=== PATIENT | male | born 1950 | race African-American/Black ===

== ENCOUNTER 2016-09-26 19:41 | Emergency (ER) | payer OTHER ==
[~2016-09-26] VITALS: Ht 182.9 cm; Wt 107.0 kg
[~2016-09-26 19:41] MED LIST: ALPR0.25 PO; ASPI81 PO; ASPI81TA2 PO; BISA10SU61 PR; BUME1TAB30 PO; CARV12 PO; CARV3 PO; DOCU250C76 PO; FERR-89 PO; HYDR-3965 PO; INSLAN SQ; INSU100C3 SQ; STAL100 PO; UNK INSULIN SQ; ZARO5 PO
[2016-09-26 19:51] VITALS: BP 137/89
[2016-09-26 20:15] LABS: GLUCOSE COMMENT 1 Doctor Notified; GLUCOSE,POINT OF CARE 377 MG/DL (70-110)
[2016-09-26 20:30] LABS: EOSINOPHILS % (AUTO) 1.2 % (1.0-6.0); HEMATOCRIT 32.3 % (41-53); HEMOGLOBIN 10.4 g/dL (13.5-17.5); LYMPHOCYTES # (AUTO) 0.8 K/uL (1.0-4.8); LYMPHOCYTES % (AUTO) 10.8 % (22.0-44.0); MEAN CORPUSCULAR HEMOGLOBIN 29.2 pg (26.0-34.0); MEAN CORPUSCULAR HGB CONC 32.2 G/dL (31.0-37.0); MEAN CORPUSCULAR VOLUME 91 fL (80-100); MONOCYTES # (AUTO) 0.4 K/uL (0.1-1.0); MONOCYTES % (AUTO) 5.3 % (2.0-9.0); NEUTROPHILS % (AUTO) 81.7 % (40.0-70.0); PLATELET COUNT (AUTO) 262 K/uL (150-450); RED BLOOD CELL COUNT(AUTO) 3.56 MIL/uL (4.50-5.90); RED CELL DISTRIBUTION WIDTH 15.6 % (11.5-14.5); WHITE BLOOD COUNT (AUTO) 7.3 K/uL (4.5-11.0)
[2016-09-26 20:33] LABS: ANION GAP 1 mmol/L (8-16); CALCIUM, TOTAL 8.3 mg/dL (8.8-10.5); CARBON DIOXIDE 35 mmol/L (22-29); CHLORIDE 93 mmol/L (98-107); CREATININE 1.99 mg/dL (0.60-1.30); GLOMERULAR FILTR. RATE CALC 41 mL/min (>60); POTASSIUM 3.8 mmol/L (3.5-5.1); SODIUM SERUM 129 mmol/L (136-145); UREA NITROGEN, BLOOD 42 mg/dL (7-18)
[2016-09-26 20:39] LABS: INR 1.1 (0.9-1.1); PROTHROMBIN TIME 12.1 SEC (9.4-11.6)
[2016-09-26 20:41] LABS: ALANINE AMINOTRANSFERASE 23 U/L (12-78); ALBUMIN 2.4 g/dL (3.4-5.0); ASPARTATE AMINOTRANSFERASE 19 U/L (15-37); BILIRUBIN,TOTAL 0.3 mg/dL (0.1-1.0); CREATINE KINASE, TOTAL 28 U/L (39-308); TOTAL PROTEIN, SERUM 7.6 g/dL (6.4-8.2)
[2016-09-26 21:08] LABS: B-TYPE NATRIURETIC PEPTIDE 2160 pg/mL (0-100)
== END 2016-09-26 22:28 | disposition left against medical advice (07) ==
LOC: EMS 19:46
DX: R06.02 Shortness of breath (principal); M79.89 Other specified soft tissue disorders; I11.0 Hypertensive heart disease with heart failure; I50.9 Heart failure, unspecified; E11.9 Type 2 diabetes mellitus without complications; I48.91 Unspecified atrial fibrillation; Z53.21 Procedure and treatment not carried out due to patient leaving prior to being seen by health care provider
CPT/HCPCS: 82962; 93005

== ENCOUNTER 2016-11-18 17:58 | Inpatient (IN) | payer OTHER ==
[~2016-11-18] VITALS: Ht 172.7 cm; Wt 107.8 kg
[~2016-11-18 17:58] MED LIST changes: -ASPI81 PO; -CARV12 PO; -FERR-89 PO; +FERS325 PO; -HYDR-3965 PO; -UNK INSULIN SQ
[2016-11-18 18:52] LABS: GLUCOSE,POINT OF CARE 267 MG/DL (70-110)
[2016-11-18] MEDS ORDERED: HYDR-309 PO (19:02)
[2016-11-18 19:28] LABS: BASOPHILS % (AUTO) 0.3 % (0.0-2.0); EOSINOPHILS % (AUTO) 2.9 % (1.0-6.0); HEMATOCRIT 33.8 % (41-53); HEMOGLOBIN 10.9 g/dL (13.5-17.5); LYMPHOCYTES # (AUTO) 0.6 K/uL (1.0-4.8); MEAN CORPUSCULAR HEMOGLOBIN 28.9 pg (26.0-34.0); MEAN CORPUSCULAR HGB CONC 32.2 G/dL (31.0-37.0); MEAN CORPUSCULAR VOLUME 90 fL (80-100); MONOCYTES # (AUTO) 0.5 K/uL (0.1-1.0); MONOCYTES % (AUTO) 8.8 % (2.0-9.0); NEUTROPHILS # (AUTO) 4.1 K/uL (1.8-7.7); PLATELET COUNT (AUTO) 148 K/uL (150-450); RED BLOOD CELL COUNT(AUTO) 3.77 MIL/uL (4.50-5.90); RED CELL DISTRIBUTION WIDTH 18.3 % (11.5-14.5); WHITE BLOOD COUNT (AUTO) 5.3 K/uL (4.5-11.0)
[2016-11-18 19:34] LABS: INR 1.2 (0.9-1.1); PROTHROMBIN TIME 12.7 SEC (9.4-11.6)
[2016-11-18 19:56] LABS: CALCIUM, TOTAL 8.6 mg/dL (8.8-10.5); CREATININE 2.09 mg/dL (0.60-1.30); POTASSIUM 3.9 mmol/L (3.5-5.1)
[2016-11-18 19:57] LABS: RBC MORPHOLOGY COMMENT ABNORMAL RBC MORPH
[2016-11-18 20:02] LABS: ALBUMIN 2.4 g/dL (3.4-5.0); BILIRUBIN,TOTAL 0.5 mg/dL (0.1-1.0); TOTAL PROTEIN, SERUM 7.4 g/dL (6.4-8.2)
[2016-11-18] MEDS ORDERED: FUROSEMIDE 40 MG/4 ML VIAL IVP ONE (20:30)
[2016-11-18] MEDS ORDERED: FURO20TA4 PO (20:44)
[2016-11-18] MEDS ORDERED: BUME1TAB12 PO (20:44)
[2016-11-18] MEDS ORDERED: HYDROmorphone 2 MG/ML SYRINGE IVP ONE (21:15)
[2016-11-18] MEDS ORDERED: ONDANSETRON HCL 4 MG/2 ML VIAL IVP ONE (21:15)
[2016-11-18 21:54] LABS: APPEARANCE,URINE CLOUDY (CLEAR); GLUCOSE, URINE (UA) 100 mg/dL (NEGATIVE); KETONES,URINE NEGATIVE (NEGATIVE); LEUKOCYTE ESTERASE ,URINE NEGATIVE (NEGATIVE); OCCULT BLOOD,URINE MODERATE (NEGATIVE); PROTEIN,URINE SEE CONFIRM (NEGATIVE)
[2016-11-18 21:57] LABS: ADD UA MICROSCOPIC YES
[2016-11-18] MEDS ORDERED: BUMETANIDE 0.25 MG/ML 10 ML VIAL IVP ONE (22:00)
[2016-11-18] MEDS ORDERED: ONDANSETRON HCL 4 MG/2 ML VIAL IVP PRN (22:00)
[2016-11-18] MEDS ORDERED: 0.9% SODIUM CHLORIDE 10 ML SYRINGE IVP PRN (22:00)
[2016-11-18] MEDS ORDERED: ACETAMINOPHEN 325 MG TABLET PO PRN (22:00)
[2016-11-18 22:16] LABS: SULFOSALICYLIC ACID,URINE 3+ (Negative)
[2016-11-18 22:18] LABS: WBC,URINE None Seen /HPF (0-5)
[2016-11-18 22:19] LABS: RENAL EPITHELIAL CELLS,URINE Many /LPF (None Seen)
[2016-11-18 22:56] LABS: GLUCOSE,POINT OF CARE 298 MG/DL (70-110)
[2016-11-18 23:20] VITALS: BP 145/96
[2016-11-19] MEDS ORDERED: DEXTROSE 50%-WATER 25 GM/50 ML SYRINGE IVP PRN ×2 (00:30→02:15)
[2016-11-19] MEDS: INSULIN ASPART 100 UNITS/ML SQ PRN ×4 (00:42→21:13)
[2016-11-19] MEDS ORDERED: BUME2TAB18 PO (01:13)
[2016-11-19] MEDS ORDERED: FURO80TA3 PO (01:13)
[2016-11-19] MEDS ORDERED: FINA1TAB17 PO (01:14)
[2016-11-19] MEDS ORDERED: ONDANSETRON HCL 4 MG/2 ML VIAL IVP PRN (02:15)
[2016-11-19] MEDS ORDERED: MAGNESIUM HYDROXIDE SUSPENSION 30 ML UDCUP PO PRN (02:15)
[2016-11-19] MEDS ORDERED: ACETAMINOPHEN 325 MG TABLET PO PRN (02:15)
[2016-11-19] MEDS ORDERED: 0.9% SODIUM CHLORIDE 10 ML SYRINGE IVP PRN (02:15)
[2016-11-19] MEDS ORDERED: BISACODYL 10 MG RECTAL RECTAL SUPPOSITORY PR PRN (02:15)
[2016-11-19] MEDS: BUMETANIDE 10 MG in DEXTROSE 5%-WATER 60 ML IV SCH ×2 (03:46→21:20)
[2016-11-19] MEDS ORDERED: SODIUM CHLORIDE 0.9% 500 ML IV ONE (03:48)
[2016-11-19 03:55] VITALS: BP 158/96
[2016-11-19] MEDS: HYDROCODONE/ACETAMINOPHEN 5-325 MG TABLET PO PRN ×2 (03:55→19:47)
[2016-11-19] MEDS: CARVEDILOL 3.125 MG TABLET PO SCH ×3 (03:55→21:12)
[2016-11-19 08:07] LABS: GLUCOSE,POINT OF CARE 328 MG/DL (70-110)
[2016-11-19 08:07] LABS: GLUCOSE,POINT OF CARE 184 MG/DL (70-110)
[2016-11-19 08:15] VITALS: BP 122/76
[2016-11-19 08:41] LABS: BASOPHILS % (AUTO) 0.6 % (0.0-2.0); EOSINOPHILS % (AUTO) 5.3 % (1.0-6.0); HEMATOCRIT 31.5 % (41-53); HEMOGLOBIN 10.1 g/dL (13.5-17.5); LYMPHOCYTES # (AUTO) 0.8 K/uL (1.0-4.8); LYMPHOCYTES % (AUTO) 13.8 % (22.0-44.0); MEAN CORPUSCULAR HEMOGLOBIN 28.8 pg (26.0-34.0); MEAN CORPUSCULAR VOLUME 90 fL (80-100); MONOCYTES # (AUTO) 0.8 K/uL (0.1-1.0); NEUTROPHILS # (AUTO) 3.6 K/uL (1.8-7.7); NEUTROPHILS % (AUTO) 65.3 % (40.0-70.0); RED CELL DISTRIBUTION WIDTH 18.8 % (11.5-14.5); WHITE BLOOD COUNT (AUTO) 5.5 K/uL (4.5-11.0)
[2016-11-19] MEDS: PANTOPRAZOLE SODIUM 40 MG DR TABLET PO SCH (08:59)
[2016-11-19 09:29] LABS: ALBUMIN 2.3 g/dL (3.4-5.0); BILIRUBIN,TOTAL 0.6 mg/dL (0.1-1.0); CALCIUM, TOTAL 8.3 mg/dL (8.8-10.5); CREATININE 2.01 mg/dL (0.60-1.30); POTASSIUM 3.9 mmol/L (3.5-5.1); TOTAL PROTEIN, SERUM 6.8 g/dL (6.4-8.2)
[2016-11-19 09:56] LABS: PLATELET COUNT (AUTO) 134 K/uL (150-450)
[2016-11-19 09:57] LABS: RBC MORPHOLOGY COMMENT ABNORMAL RBC MORPH
[2016-11-19 15:18] LABS: CALCIUM, TOTAL 8.4 mg/dL (8.8-10.5); CREATININE 1.92 mg/dL (0.60-1.30); POTASSIUM 4.1 mmol/L (3.5-5.1)
[2016-11-19 16:29] VITALS: BP 129/85
[2016-11-19] MEDS ORDERED: MAGNESIUM OXIDE 400 MG TABLET PO ONE (17:15)
[2016-11-19 17:20] LABS: MAGNESIUM 1.7 mg/dL (1.80-2.40); PHOSPHORUS 4.1 mg/dL (2.5-4.9)
[2016-11-19] MEDS ORDERED: RIVAROXABAN 10 MG TABLET PO SCH (18:00)
[2016-11-19 19:45] VITALS: BP 149/83
[2016-11-19 20:47] LABS: CALCIUM, TOTAL 8.5 mg/dL (8.8-10.5); CREATININE 2.18 mg/dL (0.60-1.30); POTASSIUM 4.2 mmol/L (3.5-5.1)
[2016-11-20] VITALS (7 sets, daily range): BP systolic 112–154; BP diastolic 71–95
[2016-11-20 05:32] LABS: GLUCOSE,POINT OF CARE 272 MG/DL (70-110)
[2016-11-20 05:37] LABS: GLUCOSE COMMENT 1 Received Meds; GLUCOSE,POINT OF CARE 108 MG/DL (70-110)
[2016-11-20 06:23] LABS: BASOPHILS % (AUTO) 0.2 % (0.0-2.0); EOSINOPHILS % (AUTO) 5.6 % (1.0-6.0); HEMATOCRIT 32.5 % (41-53); HEMOGLOBIN 10.3 g/dL (13.5-17.5); LYMPHOCYTES # (AUTO) 0.7 K/uL (1.0-4.8); LYMPHOCYTES % (AUTO) 12.8 % (22.0-44.0); MEAN CORPUSCULAR HGB CONC 31.8 G/dL (31.0-37.0); MEAN CORPUSCULAR VOLUME 91 fL (80-100); MONOCYTES # (AUTO) 0.6 K/uL (0.1-1.0); MONOCYTES % (AUTO) 11.7 % (2.0-9.0); NEUTROPHILS # (AUTO) 3.6 K/uL (1.8-7.7); NEUTROPHILS % (AUTO) 69.7 % (40.0-70.0); PLATELET COUNT (AUTO) 130 K/uL (150-450); RED BLOOD CELL COUNT(AUTO) 3.56 MIL/uL (4.50-5.90); RED CELL DISTRIBUTION WIDTH 18.4 % (11.5-14.5); WHITE BLOOD COUNT (AUTO) 5.2 K/uL (4.5-11.0)
[2016-11-20 06:46] LABS: ALBUMIN 2.2 g/dL (3.4-5.0); BILIRUBIN,TOTAL 0.5 mg/dL (0.1-1.0); CALCIUM, TOTAL 8.3 mg/dL (8.8-10.5); CREATININE 2.14 mg/dL (0.60-1.30); MAGNESIUM 1.8 mg/dL (1.80-2.40); POTASSIUM 3.9 mmol/L (3.5-5.1); TOTAL PROTEIN, SERUM 6.7 g/dL (6.4-8.2)
[2016-11-20 07:37] LABS: APPEARANCE,URINE TURBID (CLEAR); GLUCOSE, URINE (UA) NEGATIVE (NEGATIVE); KETONES,URINE NEGATIVE (NEGATIVE); LEUKOCYTE ESTERASE ,URINE TRACE (NEGATIVE); OCCULT BLOOD,URINE LARGE (NEGATIVE)
[2016-11-20 07:54] LABS: FINE GRANULAR CASTS,URINE 0-2 /LPF (None Seen); HYALINE CASTS, URINE 0-2 /LPF (None Seen); RBC,URINE >100 /HPF (0-2); SQUAMOUS EPITHELIAL CELL,UR Few /LPF (None Seen)
[2016-11-20 07:56] LABS: PROTEIN,URINE SEE CONFIRM (NEGATIVE)
[2016-11-20] MEDS: CARVEDILOL 6.25 MG TABLET PO SCH ×2 (09:27→20:01)
[2016-11-20] MEDS: PANTOPRAZOLE SODIUM 40 MG DR TABLET PO SCH (09:27)
[2016-11-20] MEDS: HYDROCODONE/ACETAMINOPHEN 5-325 MG TABLET PO PRN ×2 (09:30→19:58)
[2016-11-20 12:18] LABS: CALCIUM, TOTAL 8.3 mg/dL (8.8-10.5); CREATININE 2.18 mg/dL (0.60-1.30); POTASSIUM 4.3 mmol/L (3.5-5.1)
[2016-11-20] MEDS: ASPIRIN 81 MG CHEWABLE TABLET PO SCH (14:57)
[2016-11-20] MEDS: ATORVASTATIN CALCIUM 40 MG TABLET PO SCH (14:57)
[2016-11-20] MEDS: INSULIN ASPART 100 UNITS/ML SQ PRN ×2 (17:53→20:00)
[2016-11-20] MEDS: BUMETANIDE 10 MG in DEXTROSE 5%-WATER 60 ML IV SCH (17:54)
[2016-11-20 19:57] LABS: GLUCOSE COMMENT 1 Received Meds; GLUCOSE,POINT OF CARE 191 MG/DL (70-110)
[2016-11-20 19:57] LABS: GLUCOSE,POINT OF CARE 207 MG/DL (70-110)
[2016-11-21] VITALS (8 sets, daily range): BP systolic 116–139; BP diastolic 49–89
[2016-11-21 01:36] LABS: GLUCOSE,POINT OF CARE 115 MG/DL (70-110)
[2016-11-21 02:07] LABS: GLUCOSE COMMENT 1 Received Meds; GLUCOSE,POINT OF CARE 208 MG/DL (70-110)
[2016-11-21 02:07] LABS: GLUCOSE COMMENT 1 Received Meds; GLUCOSE,POINT OF CARE 222 MG/DL (70-110)
[2016-11-21] MEDS: MORPHINE SULFATE 4 MG/ML SYRINGE IVP PRN ×2 (02:19→19:58)
[2016-11-21] MEDS: INSULIN ASPART 100 UNITS/ML SQ PRN ×4 (06:07→21:26)
[2016-11-21 07:02] LABS: BASOPHILS # (AUTO) 0.01 K/uL (0.00-0.20); BASOPHILS % (AUTO) 0.2 % (0.0-2.0); EOSINOPHILS # (AUTO) 0.22 K/uL (0.00-0.70); EOSINOPHILS % (AUTO) 3.08 % (1.0-6.0); HEMATOCRIT 34.5 % (41-53); HEMOGLOBIN 11.3 g/dL (13.5-17.5); LYMPHOCYTES # (AUTO) 0.6 K/uL (1.0-4.8); LYMPHOCYTES % (AUTO) 8.7 % (22.0-44.0); MEAN CORPUSCULAR HEMOGLOBIN 29.4 pg (26.0-34.0); MEAN CORPUSCULAR HGB CONC 32.8 G/dL (31.0-37.0); MEAN CORPUSCULAR VOLUME 90 fL (80-100); MONOCYTES # (AUTO) 0.7 K/uL (0.1-1.0); MONOCYTES % (AUTO) 9.4 % (2.0-9.0); NEUTROPHILS # (AUTO) 5.8 K/uL (1.8-7.7); NEUTROPHILS % (AUTO) 78.6 % (40.0-70.0); PLATELET COUNT (AUTO) 151 K/uL (150-450); RED BLOOD CELL COUNT(AUTO) 3.86 MIL/uL (4.50-5.90); RED CELL DISTRIBUTION WIDTH 18.7 % (11.5-14.5); WHITE BLOOD COUNT (AUTO) 7.3 K/uL (4.5-11.0)
[2016-11-21 07:17] LABS: GLUCOSE COMMENT 1 Received Meds; GLUCOSE,POINT OF CARE 306 MG/DL (70-110)
[2016-11-21 07:17] LABS: RBC MORPHOLOGY COMMENT ABNORMAL RBC MORPH
[2016-11-21 07:47] LABS: ALBUMIN 2.3 g/dL (3.4-5.0); BILIRUBIN,TOTAL 0.5 mg/dL (0.1-1.0); CALCIUM, TOTAL 8.4 mg/dL (8.8-10.5); CREATININE 2.32 mg/dL (0.60-1.30); MAGNESIUM 1.9 mg/dL (1.80-2.40); PHOSPHORUS 4.1 mg/dL (2.5-4.9); POTASSIUM 4.1 mmol/L (3.5-5.1)
[2016-11-21] MEDS: CARVEDILOL 6.25 MG TABLET PO SCH ×2 (08:55→21:31)
[2016-11-21] MEDS: ASPIRIN 81 MG CHEWABLE TABLET PO SCH (08:55)
[2016-11-21] MEDS: PANTOPRAZOLE SODIUM 40 MG DR TABLET PO SCH (08:56)
[2016-11-21] MEDS: ATORVASTATIN CALCIUM 40 MG TABLET PO SCH ×2 (08:56→09:00)
[2016-11-21] MEDS: HYDROCODONE/ACETAMINOPHEN 5-325 MG TABLET PO PRN ×2 (12:01→21:31)
[2016-11-21 12:56] LABS: GLUCOSE COMMENT 1 Received Meds; GLUCOSE,POINT OF CARE 242 MG/DL (70-110)
[2016-11-21] MEDS: BUMETANIDE 10 MG in DEXTROSE 5%-WATER 60 ML IV SCH (13:58)
[2016-11-21] MEDS ORDERED: FINA5TAB41 PO (15:17)
[2016-11-21] MEDS: BUMETANIDE 0.25 MG/ML 10 ML VIAL IVP SCH ×2 (16:33→23:56)
[2016-11-21 20:17] LABS: GLUCOSE COMMENT 1 Received Meds; GLUCOSE,POINT OF CARE 226 MG/DL (70-110)
[2016-11-21 20:21] LABS: GLUCOSE COMMENT 1 Received Meds; GLUCOSE,POINT OF CARE 140 MG/DL (70-110)
[2016-11-22 01:02] LABS: GLUCOSE COMMENT 1 Received Meds; GLUCOSE,POINT OF CARE 168 MG/DL (70-110)
[2016-11-22] MEDS: MORPHINE SULFATE 4 MG/ML SYRINGE IVP PRN ×2 (06:02→21:54)
[2016-11-22] MEDS: INSULIN ASPART 100 UNITS/ML SQ PRN ×4 (06:37→21:45)
[2016-11-22 07:12] LABS: BASOPHILS % (AUTO) 0.2 % (0.0-2.0); EOSINOPHILS % (AUTO) 5.3 % (1.0-6.0); HEMATOCRIT 35.8 % (41-53); HEMOGLOBIN 11.2 g/dL (13.5-17.5); LYMPHOCYTES # (AUTO) 0.6 K/uL (1.0-4.8); LYMPHOCYTES % (AUTO) 11.1 % (22.0-44.0); MEAN CORPUSCULAR HEMOGLOBIN 28.7 pg (26.0-34.0); MEAN CORPUSCULAR HGB CONC 31.5 G/dL (31.0-37.0); MEAN CORPUSCULAR VOLUME 91 fL (80-100); MONOCYTES # (AUTO) 0.6 K/uL (0.1-1.0); MONOCYTES % (AUTO) 10.5 % (2.0-9.0); NEUTROPHILS # (AUTO) 3.9 K/uL (1.8-7.7); NEUTROPHILS % (AUTO) 72.9 % (40.0-70.0); PLATELET COUNT (AUTO) 143 K/uL (150-450); RED BLOOD CELL COUNT(AUTO) 3.92 MIL/uL (4.50-5.90); RED CELL DISTRIBUTION WIDTH 18.8 % (11.5-14.5); WHITE BLOOD COUNT (AUTO) 5.4 K/uL (4.5-11.0)
[2016-11-22 07:43] LABS: ALBUMIN 2.2 g/dL (3.4-5.0); BILIRUBIN,TOTAL 0.5 mg/dL (0.1-1.0); CALCIUM, TOTAL 8.2 mg/dL (8.8-10.5); CREATININE 2.3 mg/dL (0.60-1.30); POTASSIUM 4.1 mmol/L (3.5-5.1); TOTAL PROTEIN, SERUM 6.9 g/dL (6.4-8.2)
[2016-11-22 08:40] VITALS: BP 112/77
[2016-11-22] MEDS: BUMETANIDE 0.25 MG/ML 10 ML VIAL IVP SCH ×2 (08:44→16:18)
[2016-11-22] MEDS: PANTOPRAZOLE SODIUM 40 MG DR TABLET PO SCH (08:44)
[2016-11-22] MEDS: ATORVASTATIN CALCIUM 40 MG TABLET PO SCH (08:44)
[2016-11-22] MEDS: ASPIRIN 81 MG CHEWABLE TABLET PO SCH (08:44)
[2016-11-22] MEDS: CARVEDILOL 6.25 MG TABLET PO SCH ×2 (08:44→21:43)
[2016-11-22 09:37] VITALS: BP 116/70
[2016-11-22] MEDS: HYDROCODONE/ACETAMINOPHEN 5-325 MG TABLET PO PRN (09:40)
[2016-11-22 09:53] LABS: RBC MORPHOLOGY COMMENT ABNORMAL RBC MORPH
[2016-11-22 15:28] VITALS: BP 150/89
[2016-11-22] MEDS ORDERED: METOLAZONE 5 MG TABLET PO ONE (15:30)
[2016-11-22 19:26] VITALS: BP 142/90
[2016-11-22 23:35] VITALS: BP 136/83
[2016-11-23] MEDS: BUMETANIDE 0.25 MG/ML 10 ML VIAL IVP SCH ×3 (00:07→16:27)
[2016-11-23 04:12] LABS: GLUCOSE COMMENT 1 Received Meds; GLUCOSE,POINT OF CARE 250 MG/DL (70-110)
[2016-11-23 04:22] LABS: GLUCOSE COMMENT 1 Received Meds; GLUCOSE,POINT OF CARE 184 MG/DL (70-110)
[2016-11-23 04:38] VITALS: BP 137/71
[2016-11-23 06:00] LABS: BASOPHILS % (AUTO) 0.3 % (0.0-2.0); EOSINOPHILS % (AUTO) 6.1 % (1.0-6.0); HEMATOCRIT 35.8 % (41-53); HEMOGLOBIN 11.3 g/dL (13.5-17.5); LYMPHOCYTES # (AUTO) 0.6 K/uL (1.0-4.8); LYMPHOCYTES % (AUTO) 10.7 % (22.0-44.0); MEAN CORPUSCULAR HEMOGLOBIN 28.7 pg (26.0-34.0); MEAN CORPUSCULAR HGB CONC 31.6 G/dL (31.0-37.0); MEAN CORPUSCULAR VOLUME 91 fL (80-100); MONOCYTES # (AUTO) 0.7 K/uL (0.1-1.0); MONOCYTES % (AUTO) 11.8 % (2.0-9.0); NEUTROPHILS # (AUTO) 4.1 K/uL (1.8-7.7); NEUTROPHILS % (AUTO) 71.1 % (40.0-70.0); PLATELET COUNT (AUTO) 151 K/uL (150-450); RED BLOOD CELL COUNT(AUTO) 3.95 MIL/uL (4.50-5.90); RED CELL DISTRIBUTION WIDTH 19.2 % (11.5-14.5); WHITE BLOOD COUNT (AUTO) 5.7 K/uL (4.5-11.0)
[2016-11-23 06:21] LABS: CALCIUM, TOTAL 8.4 mg/dL (8.8-10.5); CREATININE 2.25 mg/dL (0.60-1.30); MAGNESIUM 1.8 mg/dL (1.80-2.40); PHOSPHORUS 4.3 mg/dL (2.5-4.9); POTASSIUM 4.3 mmol/L (3.5-5.1)
[2016-11-23] MEDS: INSULIN ASPART 100 UNITS/ML SQ PRN ×6 (06:35→22:09)
[2016-11-23 06:42] LABS: GLUCOSE COMMENT 1 Received Meds; GLUCOSE,POINT OF CARE 233 MG/DL (70-110)
[2016-11-23 06:42] LABS: GLUCOSE COMMENT 1 Received Meds; GLUCOSE,POINT OF CARE 263 MG/DL (70-110)
[2016-11-23 06:47] LABS: GLUCOSE COMMENT 1 Received Meds; GLUCOSE,POINT OF CARE 215 MG/DL (70-110)
[2016-11-23 06:52] LABS: RBC MORPHOLOGY COMMENT ABNORMAL RBC MORPH
[2016-11-23 07:03] VITALS: BP 123/77
[2016-11-23] MEDS ORDERED: METOLAZONE 5 MG TABLET PO ONE (07:30)
[2016-11-23] MEDS: CARVEDILOL 6.25 MG TABLET PO SCH ×3 (09:00→21:10)
[2016-11-23] MEDS: ATORVASTATIN CALCIUM 40 MG TABLET PO SCH (09:00)
[2016-11-23] MEDS: ASPIRIN 81 MG CHEWABLE TABLET PO SCH (09:00)
[2016-11-23] MEDS: PANTOPRAZOLE SODIUM 40 MG DR TABLET PO SCH (09:00)
[2016-11-23] MEDS: HYDROCODONE/ACETAMINOPHEN 5-325 MG TABLET PO PRN (09:15)
[2016-11-23 11:17] VITALS: BP 139/83
[2016-11-23 15:14] VITALS: BP 141/88
[2016-11-23] MEDS: MORPHINE SULFATE 4 MG/ML SYRINGE IVP PRN (17:57)
[2016-11-23 19:46] VITALS: BP 133/82
[2016-11-23] MEDS: ZOLPIDEM TARTRATE 5 MG TABLET PO PRN ×2 (21:10→21:25)
[2016-11-23 23:38] VITALS: BP 129/78
[2016-11-24] MEDS: BUMETANIDE 0.25 MG/ML 10 ML VIAL IVP SCH ×3 (00:04→16:13)
[2016-11-24 03:58] VITALS: BP 142/92
[2016-11-24 04:22] LABS: GLUCOSE,POINT OF CARE 244 MG/DL (70-110)
[2016-11-24] MEDS: INSULIN ASPART 100 UNITS/ML SQ PRN ×4 (06:49→21:04)
[2016-11-24 07:37] LABS: GLUCOSE COMMENT 1 Received Meds; GLUCOSE,POINT OF CARE 235 MG/DL (70-110)
[2016-11-24 07:37] LABS: GLUCOSE COMMENT 1 Received Meds; GLUCOSE,POINT OF CARE 244 MG/DL (70-110)
[2016-11-24 07:37] LABS: GLUCOSE,POINT OF CARE 211 MG/DL (70-110)
[2016-11-24 07:39] VITALS: BP 142/93
[2016-11-24 08:03] LABS: BASOPHILS % (AUTO) 0.2 % (0.0-2.0); EOSINOPHILS % (AUTO) 6.4 % (1.0-6.0); HEMOGLOBIN 11.1 g/dL (13.5-17.5); LYMPHOCYTES # (AUTO) 0.8 K/uL (1.0-4.8); LYMPHOCYTES % (AUTO) 13.7 % (22.0-44.0); MEAN CORPUSCULAR HEMOGLOBIN 28.5 pg (26.0-34.0); MEAN CORPUSCULAR HGB CONC 31.7 G/dL (31.0-37.0); MEAN CORPUSCULAR VOLUME 90 fL (80-100); MONOCYTES # (AUTO) 0.6 K/uL (0.1-1.0); NEUTROPHILS # (AUTO) 3.9 K/uL (1.8-7.7); NEUTROPHILS % (AUTO) 69.7 % (40.0-70.0); PLATELET COUNT (AUTO) 173 K/uL (150-450); RED BLOOD CELL COUNT(AUTO) 3.89 MIL/uL (4.50-5.90); RED CELL DISTRIBUTION WIDTH 18.8 % (11.5-14.5); WHITE BLOOD COUNT (AUTO) 5.6 K/uL (4.5-11.0)
[2016-11-24 08:16] LABS: CALCIUM, TOTAL 8.3 mg/dL (8.8-10.5); CREATININE 2.25 mg/dL (0.60-1.30); MAGNESIUM 1.8 mg/dL (1.80-2.40); PHOSPHORUS 3.7 mg/dL (2.5-4.9); POTASSIUM 3.7 mmol/L (3.5-5.1)
[2016-11-24] MEDS: CARVEDILOL 6.25 MG TABLET PO SCH ×2 (08:30→20:48)
[2016-11-24] MEDS: ATORVASTATIN CALCIUM 40 MG TABLET PO SCH (08:30)
[2016-11-24] MEDS: ASPIRIN 81 MG CHEWABLE TABLET PO SCH ×2 (08:30→08:58)
[2016-11-24] MEDS: PANTOPRAZOLE SODIUM 40 MG DR TABLET PO SCH ×2 (08:30→08:58)
[2016-11-24] MEDS: HYDROCODONE/ACETAMINOPHEN 5-325 MG TABLET PO PRN ×3 (08:31→23:05)
[2016-11-24] MEDS ORDERED: METOLAZONE 5 MG TABLET PO SCH (09:00)
[2016-11-24 11:04] VITALS: BP 166/99
[2016-11-24 11:48] LABS: RBC MORPHOLOGY COMMENT ABNORMAL RBC MORPH
[2016-11-24] MEDS ORDERED: SODIUM CHLORIDE 0.9% 100 ML ONE (12:36)
[2016-11-24] MEDS: SOD FERRIC GLUC COMPLX/SUCROSE 125 MG in SODIUM CHLORIDE 0.9% 100 ML IV SCH (12:55)
[2016-11-24 14:52] LABS: GLUCOSE,POINT OF CARE 335 MG/DL (70-110)
[2016-11-24 15:43] VITALS: BP 141/79
[2016-11-24 19:39] VITALS: BP 127/78
[2016-11-24 20:02] LABS: GLUCOSE COMMENT 1 Received Meds; GLUCOSE,POINT OF CARE 274 MG/DL (70-110)
[2016-11-24 21:51] LABS: GLUCOSE,POINT OF CARE 258 MG/DL (70-110)
[2016-11-24 23:33] VITALS: BP 121/73
[2016-11-25] MEDS: BUMETANIDE 0.25 MG/ML 10 ML VIAL IVP SCH ×3 (01:50→20:47)
[2016-11-25 04:53] VITALS: BP 116/74
[2016-11-25 06:32] LABS: BASOPHILS % (AUTO) 0.2 % (0.0-2.0); EOSINOPHILS % (AUTO) 8.7 % (1.0-6.0); HEMATOCRIT 30.8 % (41-53); HEMOGLOBIN 9.9 g/dL (13.5-17.5); LYMPHOCYTES # (AUTO) 0.9 K/uL (1.0-4.8); LYMPHOCYTES % (AUTO) 18.6 % (22.0-44.0); MEAN CORPUSCULAR HEMOGLOBIN 28.8 pg (26.0-34.0); MEAN CORPUSCULAR HGB CONC 32.2 G/dL (31.0-37.0); MEAN CORPUSCULAR VOLUME 89 fL (80-100); MONOCYTES # (AUTO) 0.7 K/uL (0.1-1.0); MONOCYTES % (AUTO) 15.2 % (2.0-9.0); NEUTROPHILS # (AUTO) 2.7 K/uL (1.8-7.7); NEUTROPHILS % (AUTO) 57.3 % (40.0-70.0); PLATELET COUNT (AUTO) 156 K/uL (150-450); RED BLOOD CELL COUNT(AUTO) 3.45 MIL/uL (4.50-5.90); RED CELL DISTRIBUTION WIDTH 18.5 % (11.5-14.5); WHITE BLOOD COUNT (AUTO) 4.7 K/uL (4.5-11.0)
[2016-11-25 06:48] LABS: CALCIUM, TOTAL 8.1 mg/dL (8.8-10.5); CREATININE 2.17 mg/dL (0.60-1.30); MAGNESIUM 1.8 mg/dL (1.80-2.40); PHOSPHORUS 3.8 mg/dL (2.5-4.9); POTASSIUM 3.3 mmol/L (3.5-5.1)
[2016-11-25 07:32] LABS: GLUCOSE,POINT OF CARE 96 MG/DL (70-110)
[2016-11-25 07:34] VITALS: BP 136/77
[2016-11-25] MEDS: METOLAZONE 5 MG TABLET PO SCH (08:00)
[2016-11-25] MEDS: HYDROCODONE/ACETAMINOPHEN 5-325 MG TABLET PO PRN ×2 (08:06→19:07)
[2016-11-25] MEDS: ATORVASTATIN CALCIUM 40 MG TABLET PO SCH (09:00)
[2016-11-25] MEDS: ASPIRIN 81 MG CHEWABLE TABLET PO SCH (09:26)
[2016-11-25] MEDS: CARVEDILOL 6.25 MG TABLET PO SCH ×2 (09:26→20:02)
[2016-11-25] MEDS: PANTOPRAZOLE SODIUM 40 MG DR TABLET PO SCH (09:27)
[2016-11-25 09:30] LABS: RBC MORPHOLOGY COMMENT ABNORMAL RBC MORPH
[2016-11-25] MEDS ORDERED: SODIUM CHLORIDE 0.9% 100 ML ONE (11:10)
[2016-11-25] MEDS: SOD FERRIC GLUC COMPLX/SUCROSE 125 MG in SODIUM CHLORIDE 0.9% 100 ML IV SCH (11:12)
[2016-11-25 11:17] VITALS: BP 124/68
[2016-11-25] MEDS: INSULIN ASPART 100 UNITS/ML SQ PRN ×3 (11:55→20:50)
[2016-11-25 12:42] LABS: GLUCOSE COMMENT 1 Received Meds; GLUCOSE,POINT OF CARE 193 MG/DL (70-110)
[2016-11-25 15:38] VITALS: BP 122/70
[2016-11-25] MEDS: POTASSIUM CHLORIDE 10% 40 MEQ/30 ML LIQUID UDCUP PO SCH (16:38)
[2016-11-25 19:49] VITALS: BP 125/75
[2016-11-25 20:12] LABS: GLUCOSE COMMENT 1 Received Meds; GLUCOSE,POINT OF CARE 204 MG/DL (70-110)
[2016-11-25 21:27] LABS: GLUCOSE COMMENT 1 Received Meds; GLUCOSE,POINT OF CARE 251 MG/DL (70-110)
[2016-11-26] VITALS (7 sets, daily range): BP systolic 117–139; BP diastolic 69–100
[2016-11-26] MEDS: INSULIN ASPART 100 UNITS/ML SQ PRN ×4 (06:45→20:23)
[2016-11-26] MEDS: POTASSIUM CHLORIDE 10% 40 MEQ/30 ML LIQUID UDCUP PO SCH (08:33)
[2016-11-26] MEDS: CARVEDILOL 6.25 MG TABLET PO SCH ×2 (08:34→20:22)
[2016-11-26] MEDS: METOLAZONE 5 MG TABLET PO SCH (08:34)
[2016-11-26] MEDS: PANTOPRAZOLE SODIUM 40 MG DR TABLET PO SCH (08:34)
[2016-11-26] MEDS: ASPIRIN 81 MG CHEWABLE TABLET PO SCH (08:34)
[2016-11-26] MEDS: BUMETANIDE 0.25 MG/ML 10 ML VIAL IVP SCH ×2 (08:34→20:22)
[2016-11-26 09:09] LABS: CALCIUM, TOTAL 8.3 mg/dL (8.8-10.5); CREATININE 2.24 mg/dL (0.60-1.30); POTASSIUM 3.7 mmol/L (3.5-5.1)
[2016-11-26] MEDS: SOD FERRIC GLUC COMPLX/SUCROSE 125 MG in SODIUM CHLORIDE 0.9% 100 ML IV SCH (11:18)
[2016-11-26] MEDS: HYDROCODONE/ACETAMINOPHEN 5-325 MG TABLET PO PRN ×2 (13:49→23:18)
[2016-11-26 20:02] LABS: GLUCOSE COMMENT 1 Received Meds; GLUCOSE,POINT OF CARE 249 MG/DL (70-110)
[2016-11-27 02:02] LABS: GLUCOSE,POINT OF CARE 203 MG/DL (70-110)
[2016-11-27 05:40] VITALS: BP 124/86
[2016-11-27 07:19] VITALS: BP 144/94
[2016-11-27] MEDS: POTASSIUM CHLORIDE 10% 40 MEQ/30 ML LIQUID UDCUP PO SCH ×2 (09:00→09:12)
[2016-11-27] MEDS: BUMETANIDE 0.25 MG/ML 10 ML VIAL IVP SCH ×2 (09:11→21:07)
[2016-11-27] MEDS: ASPIRIN 81 MG CHEWABLE TABLET PO SCH (09:11)
[2016-11-27] MEDS: PANTOPRAZOLE SODIUM 40 MG DR TABLET PO SCH (09:12)
[2016-11-27] MEDS: CARVEDILOL 6.25 MG TABLET PO SCH ×2 (09:12→21:07)
[2016-11-27] MEDS: HYDROCODONE/ACETAMINOPHEN 5-325 MG TABLET PO PRN (09:33)
[2016-11-27] MEDS: SOD FERRIC GLUC COMPLX/SUCROSE 125 MG in SODIUM CHLORIDE 0.9% 100 ML IV SCH (10:10)
[2016-11-27] MEDS: INSULIN ASPART 100 UNITS/ML SQ PRN ×3 (11:55→21:56)
[2016-11-27 12:06] VITALS: BP 124/90
[2016-11-27 13:24] LABS: CALCIUM, TOTAL 8.3 mg/dL (8.8-10.5); CREATININE 2.23 mg/dL (0.60-1.30)
[2016-11-27 15:12] VITALS: BP 134/84
[2016-11-27 20:18] LABS: GLUCOSE COMMENT 1 Received Meds; GLUCOSE,POINT OF CARE 198 MG/DL (70-110)
[2016-11-27 20:18] LABS: GLUCOSE COMMENT 1 Received Meds; GLUCOSE,POINT OF CARE 222 MG/DL (70-110)
[2016-11-27 20:18] LABS: GLUCOSE COMMENT 1 Received Meds; GLUCOSE,POINT OF CARE 297 MG/DL (70-110)
[2016-11-27 20:18] LABS: GLUCOSE COMMENT 1 Received Meds; GLUCOSE,POINT OF CARE 341 MG/DL (70-110)
[2016-11-27 20:18] LABS: GLUCOSE COMMENT 1 Received Meds; GLUCOSE,POINT OF CARE 218 MG/DL (70-110)
[2016-11-27 21:21] VITALS: BP 148/57
[2016-11-27 23:47] LABS: GLUCOSE COMMENT 1 Received Meds; GLUCOSE,POINT OF CARE 244 MG/DL (70-110)
[2016-11-28] VITALS (7 sets, daily range): BP systolic 133–142; BP diastolic 84–97
[2016-11-28 01:57] LABS: GLUCOSE,POINT OF CARE 190 MG/DL (70-110)
[2016-11-28] MEDS: HYDROCODONE/ACETAMINOPHEN 5-325 MG TABLET PO PRN ×2 (06:22→21:09)
[2016-11-28] MEDS: BUMETANIDE 0.25 MG/ML 10 ML VIAL IVP SCH ×2 (08:54→21:09)
[2016-11-28] MEDS: ASPIRIN 81 MG CHEWABLE TABLET PO SCH (08:54)
[2016-11-28] MEDS: CARVEDILOL 6.25 MG TABLET PO SCH ×2 (08:54→21:09)
[2016-11-28] MEDS: PANTOPRAZOLE SODIUM 40 MG DR TABLET PO SCH (08:54)
[2016-11-28] MEDS: ISOSORB DINIT/HYDRALAZINE HCL 20-37.5 MG TABLET PO SCH ×2 (08:55→21:09)
[2016-11-28 10:00] LABS: BASOPHILS % (AUTO) 0.1 % (0.0-2.0); EOSINOPHILS % (AUTO) 7.5 % (1.0-6.0); HEMATOCRIT 34.1 % (41-53); HEMOGLOBIN 10.9 g/dL (13.5-17.5); LYMPHOCYTES # (AUTO) 0.8 K/uL (1.0-4.8); LYMPHOCYTES % (AUTO) 13.7 % (22.0-44.0); MEAN CORPUSCULAR HEMOGLOBIN 28.7 pg (26.0-34.0); MEAN CORPUSCULAR HGB CONC 31.9 G/dL (31.0-37.0); MEAN CORPUSCULAR VOLUME 90 fL (80-100); MONOCYTES # (AUTO) 0.7 K/uL (0.1-1.0); NEUTROPHILS % (AUTO) 67.7 % (40.0-70.0); PLATELET COUNT (AUTO) 169 K/uL (150-450); RED CELL DISTRIBUTION WIDTH 17.9 % (11.5-14.5); WHITE BLOOD COUNT (AUTO) 5.9 K/uL (4.5-11.0)
[2016-11-28 10:08] LABS: ANION GAP 6 mmol/L (8-16); CALCIUM, TOTAL 8.3 mg/dL (8.8-10.5); CARBON DIOXIDE 34 mmol/L (22-29); CHLORIDE 98 mmol/L (98-107); CREATININE 2.24 mg/dL (0.60-1.30); GLOMERULAR FILTR. RATE CALC 36 mL/min (>60); POTASSIUM 3.9 mmol/L (3.5-5.1); SODIUM SERUM 138 mmol/L (136-145); UREA NITROGEN, BLOOD 52 mg/dL (7-18)
[2016-11-28 10:23] LABS: B-TYPE NATRIURETIC PEPTIDE > 5000 pg/mL (0-100)
[2016-11-28 10:52] LABS: RBC MORPHOLOGY COMMENT ABNORMAL RBC MORPH
[2016-11-28] MEDS ORDERED: SODIUM CHLORIDE 0.9% 500 ML IV ONE (11:44)
[2016-11-28] MEDS: SOD FERRIC GLUC COMPLX/SUCROSE 125 MG in SODIUM CHLORIDE 0.9% 100 ML IV SCH (11:52)
[2016-11-28] MEDS: MORPHINE SULFATE 4 MG/ML SYRINGE IVP PRN (12:24)
[2016-11-28 13:56] LABS: GLUCOSE COMMENT 1 Received Meds; GLUCOSE,POINT OF CARE 245 MG/DL (70-110)
[2016-11-28 13:56] LABS: GLUCOSE COMMENT 1 Received Meds; GLUCOSE,POINT OF CARE 195 MG/DL (70-110)
[2016-11-28] MEDS: INSULIN ASPART 100 UNITS/ML SQ PRN ×2 (17:36→21:11)
[2016-11-29 04:26] VITALS: BP 114/72
[2016-11-29 05:52] LABS: GLUCOSE COMMENT 1 Received Meds; GLUCOSE,POINT OF CARE 382 MG/DL (70-110)
[2016-11-29 07:28] LABS: BASOPHILS % (AUTO) 0.4 % (0.0-2.0); HEMATOCRIT 32.4 % (41-53); HEMOGLOBIN 10.3 g/dL (13.5-17.5); LYMPHOCYTES # (AUTO) 0.9 K/uL (1.0-4.8); LYMPHOCYTES % (AUTO) 15.6 % (22.0-44.0); MEAN CORPUSCULAR HEMOGLOBIN 28.6 pg (26.0-34.0); MEAN CORPUSCULAR HGB CONC 31.7 G/dL (31.0-37.0); MEAN CORPUSCULAR VOLUME 90 fL (80-100); MONOCYTES # (AUTO) 0.8 K/uL (0.1-1.0); MONOCYTES % (AUTO) 14.8 % (2.0-9.0); NEUTROPHILS # (AUTO) 3.5 K/uL (1.8-7.7); NEUTROPHILS % (AUTO) 62.2 % (40.0-70.0); PLATELET COUNT (AUTO) 163 K/uL (150-450); RED BLOOD CELL COUNT(AUTO) 3.59 MIL/uL (4.50-5.90); RED CELL DISTRIBUTION WIDTH 18.2 % (11.5-14.5); WHITE BLOOD COUNT (AUTO) 5.6 K/uL (4.5-11.0)
[2016-11-29 07:50] VITALS: BP 128/82
[2016-11-29 07:57] LABS: ALBUMIN 2.1 g/dL (3.4-5.0); BILIRUBIN,TOTAL 0.7 mg/dL (0.1-1.0); CALCIUM, TOTAL 8.2 mg/dL (8.8-10.5); CREATININE 2.28 mg/dL (0.60-1.30); MAGNESIUM 1.7 mg/dL (1.80-2.40); POTASSIUM 3.9 mmol/L (3.5-5.1); TOTAL PROTEIN, SERUM 6.8 g/dL (6.4-8.2)
[2016-11-29 08:02] LABS: GLUCOSE COMMENT 1 Received Meds; GLUCOSE,POINT OF CARE 316 MG/DL (70-110)
[2016-11-29 08:02] LABS: GLUCOSE,POINT OF CARE 133 MG/DL (70-110)
[2016-11-29] MEDS: BUMETANIDE 0.25 MG/ML 10 ML VIAL IVP SCH (08:29)
[2016-11-29] MEDS: ISOSORB DINIT/HYDRALAZINE HCL 20-37.5 MG TABLET PO SCH ×2 (08:29→20:59)
[2016-11-29] MEDS: CARVEDILOL 6.25 MG TABLET PO SCH ×2 (08:30→20:59)
[2016-11-29] MEDS: PANTOPRAZOLE SODIUM 40 MG DR TABLET PO SCH (08:30)
[2016-11-29] MEDS: ASPIRIN 81 MG CHEWABLE TABLET PO SCH (08:38)
[2016-11-29 09:16] LABS: RBC MORPHOLOGY COMMENT ABNORMAL RBC MORPH
[2016-11-29] MEDS: SOD FERRIC GLUC COMPLX/SUCROSE 125 MG in SODIUM CHLORIDE 0.9% 100 ML IV SCH (11:00)
[2016-11-29 11:30] VITALS: BP 126/73
[2016-11-29] MEDS: INSULIN ASPART 100 UNITS/ML SQ PRN ×3 (11:56→21:09)
[2016-11-29 15:29] VITALS: BP 133/90
[2016-11-29] MEDS: MORPHINE SULFATE 4 MG/ML SYRINGE IVP PRN (18:35)
[2016-11-29 20:30] VITALS: BP 122/70
[2016-11-30] VITALS (8 sets, daily range): BP systolic 113–145; BP diastolic 67–95
[2016-11-30] MEDS: MORPHINE SULFATE 4 MG/ML SYRINGE IVP PRN ×3 (03:21→20:55)
[2016-11-30] MEDS: INSULIN ASPART 100 UNITS/ML SQ PRN ×4 (06:47→20:47)
[2016-11-30 07:22] LABS: GLUCOSE COMMENT 1 Received Meds; GLUCOSE,POINT OF CARE 333 MG/DL (70-110)
[2016-11-30 07:22] LABS: GLUCOSE COMMENT 1 Received Meds; GLUCOSE,POINT OF CARE 245 MG/DL (70-110)
[2016-11-30 07:23] LABS: BASOPHILS % (AUTO) 0.1 % (0.0-2.0); EOSINOPHILS % (AUTO) 8.1 % (1.0-6.0); HEMATOCRIT 33.7 % (41-53); HEMOGLOBIN 10.5 g/dL (13.5-17.5); LYMPHOCYTES # (AUTO) 0.8 K/uL (1.0-4.8); MEAN CORPUSCULAR HEMOGLOBIN 28.3 pg (26.0-34.0); MEAN CORPUSCULAR HGB CONC 31.1 G/dL (31.0-37.0); MEAN CORPUSCULAR VOLUME 91 fL (80-100); MONOCYTES # (AUTO) 0.6 K/uL (0.1-1.0); NEUTROPHILS # (AUTO) 3.8 K/uL (1.8-7.7); NEUTROPHILS % (AUTO) 66.8 % (40.0-70.0); PLATELET COUNT (AUTO) 165 K/uL (150-450); RBC MORPHOLOGY COMMENT ABNORMAL RBC MORPH; RED CELL DISTRIBUTION WIDTH 18.6 % (11.5-14.5); WHITE BLOOD COUNT (AUTO) 5.8 K/uL (4.5-11.0)
[2016-11-30 07:27] LABS: GLUCOSE COMMENT 1 Received Meds; GLUCOSE,POINT OF CARE 316 MG/DL (70-110)
[2016-11-30 07:53] LABS: ALBUMIN 2.2 g/dL (3.4-5.0); BILIRUBIN,TOTAL 0.7 mg/dL (0.1-1.0); CALCIUM, TOTAL 8.5 mg/dL (8.8-10.5); CREATININE 2.26 mg/dL (0.60-1.30); MAGNESIUM 1.9 mg/dL (1.80-2.40); PHOSPHORUS 3.3 mg/dL (2.5-4.9); POTASSIUM 3.9 mmol/L (3.5-5.1); TOTAL PROTEIN, SERUM 7.1 g/dL (6.4-8.2)
[2016-11-30 07:56] LABS: GLUCOSE COMMENT 1 Received Meds; GLUCOSE,POINT OF CARE 219 MG/DL (70-110)
[2016-11-30] MEDS: ISOSORB DINIT/HYDRALAZINE HCL 20-37.5 MG TABLET PO SCH ×2 (08:59→20:39)
[2016-11-30] MEDS: CARVEDILOL 6.25 MG TABLET PO SCH ×2 (08:59→20:39)
[2016-11-30] MEDS: ASPIRIN 81 MG CHEWABLE TABLET PO SCH (08:59)
[2016-11-30] MEDS: PANTOPRAZOLE SODIUM 40 MG DR TABLET PO SCH (08:59)
[2016-11-30] MEDS: BUMETANIDE 0.25 MG/ML 10 ML VIAL IVP SCH ×2 (11:21→20:39)
[2016-11-30] MEDS: SOD FERRIC GLUC COMPLX/SUCROSE 125 MG in SODIUM CHLORIDE 0.9% 100 ML IV SCH (11:21)
[2016-11-30] MEDS: AcetaZOLAMIDE SODIUM 500 MG VIAL IVP SCH (11:21)
[2016-11-30 21:12] LABS: GLUCOSE COMMENT 1 Received Meds; GLUCOSE,POINT OF CARE 182 MG/DL (70-110)
[2016-11-30 21:12] LABS: GLUCOSE COMMENT 1 Received Meds; GLUCOSE,POINT OF CARE 290 MG/DL (70-110)
[2016-12-01 03:49] VITALS: BP 124/77
[2016-12-01 06:37] LABS: GLUCOSE COMMENT 1 Received Meds; GLUCOSE,POINT OF CARE 245 MG/DL (70-110)
[2016-12-01 08:18] VITALS: BP 138/81
[2016-12-01 09:00] LABS: BASOPHILS % (AUTO) 0.5 % (0.0-2.0); EOSINOPHILS % (AUTO) 8.9 % (1.0-6.0); HEMOGLOBIN 10.4 g/dL (13.5-17.5); LYMPHOCYTES # (AUTO) 0.7 K/uL (1.0-4.8); LYMPHOCYTES % (AUTO) 12.8 % (22.0-44.0); MEAN CORPUSCULAR HEMOGLOBIN 28.5 pg (26.0-34.0); MEAN CORPUSCULAR HGB CONC 31.5 G/dL (31.0-37.0); MEAN CORPUSCULAR VOLUME 90 fL (80-100); MONOCYTES # (AUTO) 0.6 K/uL (0.1-1.0); MONOCYTES % (AUTO) 11.2 % (2.0-9.0); NEUTROPHILS # (AUTO) 3.6 K/uL (1.8-7.7); NEUTROPHILS % (AUTO) 66.6 % (40.0-70.0); PLATELET COUNT (AUTO) 165 K/uL (150-450); RED BLOOD CELL COUNT(AUTO) 3.65 MIL/uL (4.50-5.90); RED CELL DISTRIBUTION WIDTH 18.7 % (11.5-14.5); WHITE BLOOD COUNT (AUTO) 5.4 K/uL (4.5-11.0)
[2016-12-01 09:15] LABS: ALBUMIN 2.2 g/dL (3.4-5.0); BILIRUBIN,TOTAL 0.6 mg/dL (0.1-1.0); CALCIUM, TOTAL 8.3 mg/dL (8.8-10.5); CREATININE 2.07 mg/dL (0.60-1.30); MAGNESIUM 1.8 mg/dL (1.80-2.40); POTASSIUM 3.9 mmol/L (3.5-5.1); TOTAL PROTEIN, SERUM 6.9 g/dL (6.4-8.2)
[2016-12-01] MEDS: ISOSORB DINIT/HYDRALAZINE HCL 20-37.5 MG TABLET PO SCH ×2 (09:32→21:00)
[2016-12-01] MEDS: CARVEDILOL 6.25 MG TABLET PO SCH ×2 (09:32→20:56)
[2016-12-01] MEDS: PANTOPRAZOLE SODIUM 40 MG DR TABLET PO SCH (09:32)
[2016-12-01] MEDS: ASPIRIN 81 MG CHEWABLE TABLET PO SCH (09:33)
[2016-12-01] MEDS: BUMETANIDE 0.25 MG/ML 10 ML VIAL IVP SCH ×2 (09:34→20:56)
[2016-12-01] MEDS: AcetaZOLAMIDE SODIUM 500 MG VIAL IVP SCH (09:34)
[2016-12-01] MEDS: SOD FERRIC GLUC COMPLX/SUCROSE 125 MG in SODIUM CHLORIDE 0.9% 100 ML IV SCH (10:37)
[2016-12-01 11:45] VITALS: BP 108/63
[2016-12-01] MEDS: INSULIN ASPART 100 UNITS/ML SQ PRN ×3 (12:21→22:20)
[2016-12-01 13:04] LABS: RBC MORPHOLOGY COMMENT ABNORMAL RBC MORPH
[2016-12-01 14:23] LABS: GLUCOSE,POINT OF CARE 377 MG/DL (70-110)
[2016-12-01 15:52] VITALS: BP 112/61
[2016-12-01] MEDS: MORPHINE SULFATE 4 MG/ML SYRINGE IVP PRN (15:55)
[2016-12-01 19:57] VITALS: BP 118/71
[2016-12-01 23:45] VITALS: BP 123/69
[2016-12-02] MEDS: HYDROCODONE/ACETAMINOPHEN 5-325 MG TABLET PO PRN ×2 (03:02→14:02)
[2016-12-02 03:57] VITALS: BP 125/71
[2016-12-02 04:42] LABS: GLUCOSE COMMENT 1 Received Meds; GLUCOSE,POINT OF CARE 233 MG/DL (70-110)
[2016-12-02 04:42] LABS: GLUCOSE COMMENT 1 Received Meds; GLUCOSE,POINT OF CARE 275 MG/DL (70-110)
[2016-12-02] MEDS: INSULIN ASPART 100 UNITS/ML SQ PRN ×4 (06:20→20:32)
[2016-12-02 06:37] LABS: GLUCOSE COMMENT 1 Received Meds; GLUCOSE,POINT OF CARE 364 MG/DL (70-110)
[2016-12-02 07:06] LABS: BASOPHILS # (AUTO) 0.01 K/uL (0.00-0.20); BASOPHILS % (AUTO) 0.3 % (0.0-2.0); EOSINOPHILS # (AUTO) 0.41 K/uL (0.00-0.70); EOSINOPHILS % (AUTO) 8.16 % (1.0-6.0); HEMATOCRIT 33.6 % (41-53); HEMOGLOBIN 10.9 g/dL (13.5-17.5); LYMPHOCYTES # (AUTO) 0.5 K/uL (1.0-4.8); LYMPHOCYTES % (AUTO) 10.6 % (22.0-44.0); MEAN CORPUSCULAR HGB CONC 32.3 G/dL (31.0-37.0); MEAN CORPUSCULAR VOLUME 90 fL (80-100); MONOCYTES # (AUTO) 0.5 K/uL (0.1-1.0); MONOCYTES % (AUTO) 10.8 % (2.0-9.0); NEUTROPHILS # (AUTO) 3.5 K/uL (1.8-7.7); NEUTROPHILS % (AUTO) 70.2 % (40.0-70.0); PLATELET COUNT (AUTO) 151 K/uL (150-450); RED BLOOD CELL COUNT(AUTO) 3.74 MIL/uL (4.50-5.90); RED CELL DISTRIBUTION WIDTH 18.6 % (11.5-14.5)
[2016-12-02 07:10] LABS: RBC MORPHOLOGY COMMENT ABNORMAL RBC MORPH
[2016-12-02 07:31] VITALS: BP 122/91
[2016-12-02 07:42] LABS: ALBUMIN 2.3 g/dL (3.4-5.0); BILIRUBIN,TOTAL 0.6 mg/dL (0.1-1.0); CALCIUM, TOTAL 8.5 mg/dL (8.8-10.5); CREATININE 2.12 mg/dL (0.60-1.30); MAGNESIUM 1.9 mg/dL (1.80-2.40); POTASSIUM 4.3 mmol/L (3.5-5.1); TOTAL PROTEIN, SERUM 7.4 g/dL (6.4-8.2)
[2016-12-02] MEDS: ISOSORB DINIT/HYDRALAZINE HCL 20-37.5 MG TABLET PO SCH ×2 (09:00→20:16)
[2016-12-02] MEDS: BUMETANIDE 0.25 MG/ML 10 ML VIAL IVP SCH ×2 (09:20→20:17)
[2016-12-02] MEDS: PANTOPRAZOLE SODIUM 40 MG DR TABLET PO SCH (09:21)
[2016-12-02] MEDS: CARVEDILOL 6.25 MG TABLET PO SCH ×2 (09:21→20:16)
[2016-12-02] MEDS: AcetaZOLAMIDE SODIUM 500 MG VIAL IVP SCH (09:21)
[2016-12-02] MEDS: ASPIRIN 81 MG CHEWABLE TABLET PO SCH (09:21)
[2016-12-02] MEDS: SOD FERRIC GLUC COMPLX/SUCROSE 125 MG in SODIUM CHLORIDE 0.9% 100 ML IV SCH (11:36)
[2016-12-02 11:40] VITALS: BP 128/74
[2016-12-02 12:13] LABS: GLUCOSE,POINT OF CARE 225 MG/DL (70-110)
[2016-12-02 18:03] VITALS: BP 118/84
[2016-12-02 19:21] VITALS: BP 117/70
[2016-12-02 19:36] LABS: GLUCOSE COMMENT 1 Received Meds; GLUCOSE,POINT OF CARE 233 MG/DL (70-110)
[2016-12-03 00:24] VITALS: BP 114/72
[2016-12-03 01:27] LABS: GLUCOSE COMMENT 1 Received Meds; GLUCOSE,POINT OF CARE 244 MG/DL (70-110)
[2016-12-03 01:57] VITALS: BP 151/78
[2016-12-03 03:56] VITALS: BP 131/85
[2016-12-03] MEDS: INSULIN ASPART 100 UNITS/ML SQ PRN ×3 (06:49→18:36)
[2016-12-03 07:33] VITALS: BP 125/80
[2016-12-03] MEDS: ASPIRIN 81 MG CHEWABLE TABLET PO SCH (09:00)
[2016-12-03 09:17] LABS: GLUCOSE COMMENT 1 Received Meds; GLUCOSE,POINT OF CARE 244 MG/DL (70-110)
[2016-12-03 10:46] LABS: CALCIUM, TOTAL 8.4 mg/dL (8.8-10.5); CREATININE 2.11 mg/dL (0.60-1.30); MAGNESIUM 1.7 mg/dL (1.80-2.40); POTASSIUM 3.9 mmol/L (3.5-5.1)
[2016-12-03] MEDS: SOD FERRIC GLUC COMPLX/SUCROSE 125 MG in SODIUM CHLORIDE 0.9% 100 ML IV SCH (11:00)
[2016-12-03 11:01] VITALS: BP 138/83
[2016-12-03] MEDS: BUMETANIDE 0.25 MG/ML 10 ML VIAL IVP SCH ×2 (13:26→18:22)
[2016-12-03] MEDS: AcetaZOLAMIDE SODIUM 500 MG VIAL IVP SCH (13:27)
[2016-12-03] MEDS: PANTOPRAZOLE SODIUM 40 MG DR TABLET PO SCH (13:28)
[2016-12-03] MEDS: CARVEDILOL 6.25 MG TABLET PO SCH (13:28)
[2016-12-03] MEDS: ISOSORB DINIT/HYDRALAZINE HCL 20-37.5 MG TABLET PO SCH (13:28)
[2016-12-03 15:28] VITALS: BP 103/61
[2016-12-03] MEDS ORDERED: BUME1TAB30 PO (17:16)
[2016-12-03] MEDS ORDERED: ASPI81 PO (17:17)
[2016-12-03] MEDS ORDERED: ISOS1TAB2 PO (17:18)
[2016-12-03] MEDS ORDERED: PANT40TA25 PO (17:20)
[2016-12-03] MEDS: HYDROCODONE/ACETAMINOPHEN 5-325 MG TABLET PO PRN (18:21)
[2016-12-03 20:23] LABS: GLUCOSE,POINT OF CARE 379 MG/DL (70-110)
[2016-12-03 20:23] LABS: GLUCOSE,POINT OF CARE 390 MG/DL (70-110)
[2016-12-05 10:32] LABS: ALBUMIN URINE (ELP24) 49.9 %; ALPHA-1 URINE (ELP24) 5.6 %; ALPHA-2 URINE(ELP24) 6.9 %; BETA URINE(ELP24) 19.3 %; GAMMA URINE(ELP24) 18.3 %; TOTAL PROTEIN URINE 23.5 mg/dL (Not Estab.)
== END 2016-12-03 18:55 | disposition home or self-care (01) | DRG 194 ==
LOC: EMS 18:03 → 5N 22:22
PROVIDERS: ADMIT Internal Medicine; ATTEND Internal Medicine
DX: I13.0 Hypertensive heart and chronic kidney disease with heart failure and stage 1 through stage 4 chronic kidney disease, or unspecified chronic kidney disease (principal); I47.2 Ventricular tachycardia; E11.21 Type 2 diabetes mellitus with diabetic nephropathy; N18.4 Chronic kidney disease, stage 4 (severe); E44.0 Moderate protein-calorie malnutrition; I27.2 Other secondary pulmonary hypertension; N17.9 Acute kidney failure, unspecified; G20 Parkinson's disease; I48.91 Unspecified atrial fibrillation; I50.23 Acute on chronic systolic (congestive) heart failure; N04.9 Nephrotic syndrome with unspecified morphologic changes; D50.9 Iron deficiency anemia, unspecified; E11.22 Type 2 diabetes mellitus with diabetic chronic kidney disease; E78.5 Hyperlipidemia, unspecified; E87.6 Hypokalemia; T50.2X5A Adverse effect of carbonic-anhydrase inhibitors, benzothiadiazides and other diuretics, initial encounter; I25.10 Atherosclerotic heart disease of native coronary artery without angina pectoris; I25.5 Ischemic cardiomyopathy; I34.0 Nonrheumatic mitral (valve) insufficiency; J44.9 Chronic obstructive pulmonary disease, unspecified; N40.0 Benign prostatic hyperplasia without lower urinary tract symptoms; N50.89 Other specified disorders of the male genital organs; K59.09 Other constipation; G89.29 Other chronic pain; R91.8 Other nonspecific abnormal finding of lung field; Z53.20 Procedure and treatment not carried out because of patient's decision for unspecified reasons; Z79.899 Other long term (current) drug therapy; Z79.4 Long term (current) use of insulin; Z91.048 Other nonmedicinal substance allergy status; Z88.8 Allergy status to other drugs, medicaments and biological substances; Z95.5 Presence of coronary angioplasty implant and graft; Z91.19 Patient's noncompliance with other medical treatment and regimen; Z86.711 Personal history of pulmonary embolism; Y92.89 Other specified places as the place of occurrence of the external cause; Y93.89 Activity, other specified; Y99.8 Other external cause status; Z28.21 Immunization not carried out because of patient refusal
CPT/HCPCS: 51702; 81050; 82270; 82570; 82575; 82728; 82962; 83540; 83550; 83735; 84100; 84156; 84166; 84300; 84540; 87086; 93005; 93306; 96374; 96375; 99285; J1120; J1170; J1940; J2270; J2405; J2916; J3490; J7040; J7050; J7060

== ENCOUNTER 2017-01-10 17:15 | Inpatient (IN) | payer OTHER ==
[~2017-01-10] VITALS: Ht 182.9 cm; Wt 113.9 kg
[~2017-01-10 17:15] MED LIST changes: -ALPR0.25 PO; +ASPI81 PO; -ASPI81TA2 PO; -BISA10SU61 PR; +CARV12 PO; -DOCU250C76 PO; -FERS325 PO; +FINA5TAB41 PO; +HYDR-309 PO; +HYDR-3965 PO; +ISOS1TAB2 PO; +PANT40TA25 PO; -STAL100 PO; +UNK INSULIN SQ; -ZARO5 PO
[2017-01-10 17:43] LABS: GLUCOSE,POINT OF CARE 302 MG/DL (70-110)
[2017-01-10] MEDS ORDERED: MORPHINE SULFATE 4 MG/ML SYRINGE IVP ONE (18:00)
[2017-01-10] MEDS ORDERED: FUROSEMIDE 40 MG/4 ML VIAL IVP ONE (18:00)
[2017-01-10] MEDS ORDERED: ONDANSETRON HCL 4 MG/2 ML VIAL IVP ONE (18:00)
[2017-01-10 18:02] LABS: BASOPHILS # (AUTO) 0.03 K/uL (0.00-0.20); BASOPHILS % (AUTO) 0.7 % (0.0-2.0); EOSINOPHILS # (AUTO) 0.28 K/uL (0.00-0.70); EOSINOPHILS % (AUTO) 6.33 % (1.0-6.0); HEMATOCRIT 34.8 % (41-53); HEMOGLOBIN 11.3 g/dL (13.5-17.5); LYMPHOCYTES # (AUTO) 0.6 K/uL (1.0-4.8); LYMPHOCYTES % (AUTO) 13.6 % (22.0-44.0); MEAN CORPUSCULAR HEMOGLOBIN 29.6 pg (26.0-34.0); MEAN CORPUSCULAR HGB CONC 32.6 G/dL (31.0-37.0); MEAN CORPUSCULAR VOLUME 91 fL (80-100); MONOCYTES # (AUTO) 0.5 K/uL (0.1-1.0); MONOCYTES % (AUTO) 10.7 % (2.0-9.0); NEUTROPHILS # (AUTO) 3.1 K/uL (1.8-7.7); NEUTROPHILS % (AUTO) 68.7 % (40.0-70.0); PLATELET COUNT (AUTO) 144 K/uL (150-450); RED BLOOD CELL COUNT(AUTO) 3.82 MIL/uL (4.50-5.90); RED CELL DISTRIBUTION WIDTH 18.3 % (11.5-14.5); WHITE BLOOD COUNT (AUTO) 4.5 K/uL (4.5-11.0)
[2017-01-10 18:09] LABS: INR 1.3 (0.9-1.1); PROTHROMBIN TIME 13.4 SEC (9.4-11.6)
[2017-01-10 18:23] LABS: ANION GAP 4 mmol/L (8-16); CALCIUM, TOTAL 8.5 mg/dL (8.8-10.5); CARBON DIOXIDE 33 mmol/L (22-29); CHLORIDE 100 mmol/L (98-107); CREATININE 2.31 mg/dL (0.60-1.30); GLOMERULAR FILTR. RATE CALC 35 mL/min (>60); SODIUM SERUM 137 mmol/L (136-145); UREA NITROGEN, BLOOD 34 mg/dL (7-18)
[2017-01-10 18:29] LABS: ALANINE AMINOTRANSFERASE 20 U/L (12-78); ALBUMIN 2.7 g/dL (3.4-5.0); ASPARTATE AMINOTRANSFERASE 19 U/L (15-37); BILIRUBIN,TOTAL 0.7 mg/dL (0.1-1.0); CREATINE KINASE, TOTAL 47 U/L (39-308); TOTAL PROTEIN, SERUM 7.5 g/dL (6.4-8.2)
[2017-01-10 18:32] LABS: B-TYPE NATRIURETIC PEPTIDE > 5000 pg/mL (0-100)
[2017-01-10 18:57] LABS: APPEARANCE,URINE CLEAR (CLEAR); GLUCOSE, URINE (UA) 250 mg/dL (NEGATIVE); KETONES,URINE NEGATIVE (NEGATIVE); LEUKOCYTE ESTERASE ,URINE NEGATIVE (NEGATIVE); OCCULT BLOOD,URINE SMALL (NEGATIVE); PROTEIN,URINE SEE CONFIRM (NEGATIVE)
[2017-01-10 18:59] LABS: ADD UA MICROSCOPIC YES; HYALINE CASTS, URINE 0-2 /LPF (None Seen); SQUAMOUS EPITHELIAL CELL,UR Rare /LPF (None Seen); SULFOSALICYLIC ACID,URINE 2+ (Negative)
[2017-01-10] MEDS ORDERED: NITROGLYCERIN 2% (1 GM=INCH) PACKET TP ONE (19:15)
[2017-01-10] MEDS ORDERED: ACETAMINOPHEN 325 MG TABLET PO PRN ×2 (20:30→21:45)
[2017-01-10] MEDS ORDERED: ONDANSETRON HCL 4 MG/2 ML VIAL IVP PRN ×2 (20:30→21:45)
[2017-01-10] MEDS ORDERED: INSULIN REGULAR, HUMAN 100 UNITS/ML SQ ONE (20:30)
[2017-01-10] MEDS ORDERED: IPRATROPIUM BROMIDE 0.5 MG/2.5 ML NEB SOLUTION NEB PRN (21:45)
[2017-01-10] MEDS ORDERED: POTASSIUM CHLORIDE 20 MEQ ER TABLET PO PRN ×2 (21:45)
[2017-01-10] MEDS ORDERED: CloNIDine HCL 0.1 MG TABLET PO PRN (21:45)
[2017-01-10] MEDS ORDERED: DEXTROSE 50%-WATER 25 GM/50 ML SYRINGE IVP PRN (21:45)
[2017-01-10] MEDS ORDERED: MAGNESIUM OXIDE 400 MG TABLET PO PRN (21:45)
[2017-01-10] MEDS ORDERED: MAGNESIUM SULFATE 4 GM/WATER 100 ML IV PRN (21:45)
[2017-01-10] MEDS ORDERED: ZOLPIDEM TARTRATE 5 MG TABLET PO PRN (21:45)
[2017-01-10] MEDS ORDERED: ALBUTEROL SULFATE 2.5 MG/0.5 ML NEB SOLUTION NEB PRN (21:45)
[2017-01-10] MEDS ORDERED: POTASSIUM CHL 10 MEQ/WATER 50 ML IV PRN (21:45)
[2017-01-10] MEDS ORDERED: MAGNESIUM SULFATE 2 GM in DEXTROSE 5%-WATER 50 ML IV PRN (21:45)
[2017-01-10] MEDS ORDERED: MAGNESIUM HYDROXIDE SUSPENSION 30 ML UDCUP PO PRN (21:45)
[2017-01-10] MEDS ORDERED: BISACODYL 10 MG RECTAL RECTAL SUPPOSITORY PR PRN (21:45)
[2017-01-10 22:06] VITALS: BP 140/104
[2017-01-10] MEDS: MORPHINE SULFATE 2 MG/ML SYRINGE IVP PRN (22:30)
[2017-01-10 23:43] VITALS: BP 143/104
[2017-01-11] MEDS: NITROGLYCERIN 2% (1 GM=INCH) PACKET TP SCH ×5 (00:14→23:43)
[2017-01-11 04:31] VITALS: BP 150/99
[2017-01-11] MEDS: INSULIN ASPART 100 UNITS/ML SQ PRN ×3 (06:26→21:06)
[2017-01-11 07:04] VITALS: BP 140/88
[2017-01-11 07:26] LABS: BASOPHILS # (AUTO) 0.02 K/uL (0.00-0.20); BASOPHILS % (AUTO) 0.4 % (0.0-2.0); EOSINOPHILS # (AUTO) 0.33 K/uL (0.00-0.70); HEMATOCRIT 34.4 % (41-53); LYMPHOCYTES # (AUTO) 0.8 K/uL (1.0-4.8); LYMPHOCYTES % (AUTO) 17.7 % (22.0-44.0); MEAN CORPUSCULAR HEMOGLOBIN 29.5 pg (26.0-34.0); MEAN CORPUSCULAR HGB CONC 32.1 G/dL (31.0-37.0); MEAN CORPUSCULAR VOLUME 92 fL (80-100); MONOCYTES # (AUTO) 0.5 K/uL (0.1-1.0); MONOCYTES % (AUTO) 11.4 % (2.0-9.0); NEUTROPHILS # (AUTO) 2.8 K/uL (1.8-7.7); NEUTROPHILS % (AUTO) 63.1 % (40.0-70.0); PLATELET COUNT (AUTO) 140 K/uL (150-450); RED BLOOD CELL COUNT(AUTO) 3.73 MIL/uL (4.50-5.90); RED CELL DISTRIBUTION WIDTH 18.3 % (11.5-14.5); WHITE BLOOD COUNT (AUTO) 4.5 K/uL (4.5-11.0)
[2017-01-11 07:37] LABS: RBC MORPHOLOGY COMMENT NORMAL RBC MORPH
[2017-01-11 08:00] LABS: ALBUMIN 2.6 g/dL (3.4-5.0); BILIRUBIN,TOTAL 0.8 mg/dL (0.1-1.0); CALCIUM, TOTAL 8.5 mg/dL (8.8-10.5); CHOL/HDL RATIO 1.8 (4.2-7.3); CREATININE 2.22 mg/dL (0.60-1.30); POTASSIUM 4.1 mmol/L (3.5-5.1); THYROID STIMULATING HORMONE 2.3 uIU/mL (0.36-3.74); TOTAL PROTEIN, SERUM 7.4 g/dL (6.4-8.2)
[2017-01-11] MEDS: PANTOPRAZOLE SODIUM 40 MG DR TABLET PO SCH ×2 (08:38→09:00)
[2017-01-11] MEDS: ASPIRIN 81 MG CHEWABLE TABLET PO SCH ×2 (08:38→09:00)
[2017-01-11] MEDS: FINASTERIDE 5 MG TABLET PO SCH ×2 (08:38→09:00)
[2017-01-11] MEDS: CARVEDILOL 3.125 MG TABLET PO SCH ×3 (08:38→20:55)
[2017-01-11] MEDS: HEPARIN SODIUM,PORCINE 5,000 UNITS/ML VIAL SQ SCH ×2 (08:38→20:57)
[2017-01-11] MEDS: BUMETANIDE 0.25 MG/ML 10 ML VIAL IVP SCH ×2 (08:39→20:55)
[2017-01-11] MEDS: ISOSORB DINIT/HYDRALAZINE HCL 20-37.5 MG TABLET PO SCH ×3 (08:40→20:55)
[2017-01-11] MEDS ORDERED: FUROSEMIDE 40 MG/4 ML VIAL IVP SCH (09:00)
[2017-01-11 11:22] VITALS: BP 135/82
[2017-01-11 15:00] VITALS: BP 138/78
[2017-01-11 19:14] VITALS: BP 157/99
[2017-01-11] MEDS: INSULIN DETEMIR 100 UNITS/ML SQ SCH (21:06)
[2017-01-11 23:17] VITALS: BP 146/78
[2017-01-12] MEDS: MORPHINE SULFATE 2 MG/ML SYRINGE IVP PRN ×4 (00:24→21:09)
[2017-01-12 05:52] VITALS: BP 151/82
[2017-01-12] MEDS: NITROGLYCERIN 2% (1 GM=INCH) PACKET TP SCH ×4 (06:05→23:57)
[2017-01-12 06:46] LABS: BASOPHILS % (AUTO) 0.5 % (0.0-2.0); EOSINOPHILS % (AUTO) 12.9 % (1.0-6.0); HEMATOCRIT 34.4 % (41-53); HEMOGLOBIN 10.8 g/dL (13.5-17.5); LYMPHOCYTES # (AUTO) 0.7 K/uL (1.0-4.8); LYMPHOCYTES % (AUTO) 16.8 % (22.0-44.0); MEAN CORPUSCULAR HGB CONC 31.4 G/dL (31.0-37.0); MEAN CORPUSCULAR VOLUME 92 fL (80-100); MONOCYTES # (AUTO) 0.5 K/uL (0.1-1.0); MONOCYTES % (AUTO) 12.8 % (2.0-9.0); NEUTROPHILS # (AUTO) 2.3 K/uL (1.8-7.7); PLATELET COUNT (AUTO) 143 K/uL (150-450); RED BLOOD CELL COUNT(AUTO) 3.73 MIL/uL (4.50-5.90); RED CELL DISTRIBUTION WIDTH 18.6 % (11.5-14.5); WHITE BLOOD COUNT (AUTO) 4.1 K/uL (4.5-11.0)
[2017-01-12] MEDS: INSULIN ASPART 100 UNITS/ML SQ PRN ×4 (06:46→21:07)
[2017-01-12 07:22] LABS: RBC MORPHOLOGY COMMENT ABNORMAL RBC MORPH
[2017-01-12 07:23] LABS: ALBUMIN 2.4 g/dL (3.4-5.0); BILIRUBIN,TOTAL 0.7 mg/dL (0.1-1.0); CALCIUM, TOTAL 8.5 mg/dL (8.8-10.5); CREATININE 2.14 mg/dL (0.60-1.30)
[2017-01-12 07:32] VITALS: BP 132/78
[2017-01-12] MEDS: PANTOPRAZOLE SODIUM 40 MG DR TABLET PO SCH ×2 (08:39→08:56)
[2017-01-12] MEDS: BUMETANIDE 0.25 MG/ML 10 ML VIAL IVP SCH ×2 (08:39→21:05)
[2017-01-12] MEDS: CARVEDILOL 3.125 MG TABLET PO SCH ×3 (08:39→21:06)
[2017-01-12] MEDS: ASPIRIN 81 MG CHEWABLE TABLET PO SCH (08:39)
[2017-01-12] MEDS: FINASTERIDE 5 MG TABLET PO SCH ×2 (08:39→08:54)
[2017-01-12] MEDS: MULTIVITAMINS WITH MINERALS, THERAPEUTIC TABLET PO SCH (08:40)
[2017-01-12] MEDS: HEPARIN SODIUM,PORCINE 5,000 UNITS/ML VIAL SQ SCH ×2 (08:40→21:06)
[2017-01-12] MEDS: ISOSORB DINIT/HYDRALAZINE HCL 20-37.5 MG TABLET PO SCH ×3 (09:00→21:06)
[2017-01-12 09:38] VITALS: BP 124/75
[2017-01-12 10:44] LABS: GLUCOSE COMMENT 1 Received Meds; GLUCOSE,POINT OF CARE 330 MG/DL (70-110)
[2017-01-12 11:13] VITALS: BP 150/87
[2017-01-12 13:07] LABS: GLUCOSE COMMENT 1 Received Meds; GLUCOSE,POINT OF CARE 162 MG/DL (70-110)
[2017-01-12] MEDS ORDERED: SODIUM CHLORIDE 0.9% 100 ML ONE (13:23)
[2017-01-12 16:17] VITALS: BP 142/82
[2017-01-12 19:44] VITALS: BP 142/90
[2017-01-12] MEDS: INSULIN DETEMIR 100 UNITS/ML SQ SCH (21:07)
[2017-01-13] VITALS (7 sets, daily range): BP systolic 140–151; BP diastolic 81–95
[2017-01-13] MEDS: MORPHINE SULFATE 2 MG/ML SYRINGE IVP PRN ×2 (02:13→10:56)
[2017-01-13] MEDS: NITROGLYCERIN 2% (1 GM=INCH) PACKET TP SCH ×3 (06:18→17:14)
[2017-01-13 06:35] LABS: BASOPHILS % (AUTO) 0.2 % (0.0-2.0); HEMATOCRIT 35.6 % (41-53); HEMOGLOBIN 11.1 g/dL (13.5-17.5); LYMPHOCYTES # (AUTO) 0.6 K/uL (1.0-4.8); LYMPHOCYTES % (AUTO) 14.4 % (22.0-44.0); MEAN CORPUSCULAR HEMOGLOBIN 28.8 pg (26.0-34.0); MEAN CORPUSCULAR HGB CONC 31.2 G/dL (31.0-37.0); MEAN CORPUSCULAR VOLUME 92 fL (80-100); MONOCYTES # (AUTO) 0.5 K/uL (0.1-1.0); MONOCYTES % (AUTO) 11.9 % (2.0-9.0); NEUTROPHILS # (AUTO) 2.8 K/uL (1.8-7.7); NEUTROPHILS % (AUTO) 63.5 % (40.0-70.0); PLATELET COUNT (AUTO) 146 K/uL (150-450); RED BLOOD CELL COUNT(AUTO) 3.86 MIL/uL (4.50-5.90); RED CELL DISTRIBUTION WIDTH 18.8 % (11.5-14.5); WHITE BLOOD COUNT (AUTO) 4.4 K/uL (4.5-11.0)
[2017-01-13 07:37] LABS: GLUCOSE,POINT OF CARE 111 MG/DL (70-110)
[2017-01-13 08:18] LABS: ALBUMIN 2.5 g/dL (3.4-5.0); BILIRUBIN,TOTAL 0.6 mg/dL (0.1-1.0); CALCIUM, TOTAL 8.4 mg/dL (8.8-10.5); CREATININE 2.18 mg/dL (0.60-1.30); POTASSIUM 3.9 mmol/L (3.5-5.1)
[2017-01-13 08:39] LABS: RBC MORPHOLOGY COMMENT ABNORMAL RBC MORPH
[2017-01-13] MEDS: BUMETANIDE 0.25 MG/ML 10 ML VIAL IVP SCH ×3 (09:19→21:22)
[2017-01-13] MEDS: HEPARIN SODIUM,PORCINE 5,000 UNITS/ML VIAL SQ SCH ×2 (09:19→21:00)
[2017-01-13] MEDS: ASPIRIN 81 MG CHEWABLE TABLET PO SCH (09:20)
[2017-01-13] MEDS: MULTIVITAMINS WITH MINERALS, THERAPEUTIC TABLET PO SCH (09:20)
[2017-01-13] MEDS: PANTOPRAZOLE SODIUM 40 MG DR TABLET PO SCH (09:20)
[2017-01-13] MEDS: ISOSORB DINIT/HYDRALAZINE HCL 20-37.5 MG TABLET PO SCH ×2 (09:20→21:00)
[2017-01-13] MEDS: FINASTERIDE 5 MG TABLET PO SCH (09:20)
[2017-01-13] MEDS: CARVEDILOL 3.125 MG TABLET PO SCH ×2 (09:20→21:00)
[2017-01-13] MEDS: INSULIN ASPART 100 UNITS/ML SQ PRN ×2 (11:38→17:31)
[2017-01-13 12:27] LABS: GLUCOSE COMMENT 1 Received Meds; GLUCOSE,POINT OF CARE 164 MG/DL (70-110)
[2017-01-13 18:37] LABS: GLUCOSE,POINT OF CARE 97 MG/DL (70-110)
[2017-01-13 18:37] LABS: GLUCOSE,POINT OF CARE 137 MG/DL (70-110)
[2017-01-13 18:37] LABS: GLUCOSE,POINT OF CARE 199 MG/DL (70-110)
[2017-01-13] MEDS: INSULIN DETEMIR 100 UNITS/ML SQ SCH (21:00)
[2017-01-13 21:42] LABS: GLUCOSE COMMENT 1 Received Meds; GLUCOSE,POINT OF CARE 188 MG/DL (70-110)
[2017-01-14] MEDS: NITROGLYCERIN 2% (1 GM=INCH) PACKET TP SCH ×4 (00:23→17:52)
[2017-01-14 05:11] VITALS: BP 145/92
[2017-01-14 06:21] LABS: EOSINOPHILS % (AUTO) 4.3 % (1.0-6.0); HEMATOCRIT 38.8 % (41-53); HEMOGLOBIN 12.1 g/dL (13.5-17.5); LYMPHOCYTES # (AUTO) 0.7 K/uL (1.0-4.8); LYMPHOCYTES % (AUTO) 13.2 % (22.0-44.0); MEAN CORPUSCULAR HEMOGLOBIN 28.6 pg (26.0-34.0); MEAN CORPUSCULAR HGB CONC 31.2 G/dL (31.0-37.0); MEAN CORPUSCULAR VOLUME 92 fL (80-100); MONOCYTES # (AUTO) 0.4 K/uL (0.1-1.0); MONOCYTES % (AUTO) 8.7 % (2.0-9.0); NEUTROPHILS # (AUTO) 3.7 K/uL (1.8-7.7); NEUTROPHILS % (AUTO) 73.8 % (40.0-70.0); PLATELET COUNT (AUTO) 156 K/uL (150-450); RED BLOOD CELL COUNT(AUTO) 4.24 MIL/uL (4.50-5.90); RED CELL DISTRIBUTION WIDTH 18.7 % (11.5-14.5)
[2017-01-14 06:53] LABS: ALBUMIN 2.8 g/dL (3.4-5.0); BILIRUBIN,TOTAL 0.7 mg/dL (0.1-1.0); CALCIUM, TOTAL 8.8 mg/dL (8.8-10.5); CREATININE 2.22 mg/dL (0.60-1.30); MAGNESIUM 2.2 mg/dL (1.80-2.40); TOTAL PROTEIN, SERUM 8.1 g/dL (6.4-8.2)
[2017-01-14 07:25] VITALS: BP 145/93
[2017-01-14] MEDS: BUMETANIDE 0.25 MG/ML 10 ML VIAL IVP SCH ×3 (08:30→20:32)
[2017-01-14] MEDS: HEPARIN SODIUM,PORCINE 5,000 UNITS/ML VIAL SQ SCH ×2 (08:32→20:33)
[2017-01-14] MEDS: ISOSORB DINIT/HYDRALAZINE HCL 20-37.5 MG TABLET PO SCH ×2 (08:33→20:42)
[2017-01-14] MEDS: MULTIVITAMINS WITH MINERALS, THERAPEUTIC TABLET PO SCH (08:33)
[2017-01-14] MEDS: PANTOPRAZOLE SODIUM 40 MG DR TABLET PO SCH (08:33)
[2017-01-14] MEDS: CARVEDILOL 3.125 MG TABLET PO SCH (08:34)
[2017-01-14] MEDS: FINASTERIDE 5 MG TABLET PO SCH (08:34)
[2017-01-14] MEDS ORDERED: CARVEDILOL 3.125 MG TABLET PO ONE (08:45)
[2017-01-14] MEDS ORDERED: CARVEDILOL 6.25 MG TABLET PO SCH (09:00)
[2017-01-14] MEDS: ASPIRIN 81 MG CHEWABLE TABLET PO SCH (09:03)
[2017-01-14 09:50] LABS: RBC MORPHOLOGY COMMENT ABNORMAL RBC MORPH
[2017-01-14 11:06] VITALS: BP 155/93
[2017-01-14] MEDS: INSULIN ASPART 100 UNITS/ML SQ PRN ×3 (11:54→20:35)
[2017-01-14 15:33] VITALS: BP 141/90
[2017-01-14] MEDS: OxyCODONE HCL/ACETAMINOPHEN 5-325 MG TABLET PO PRN (17:54)
[2017-01-14 19:25] VITALS: BP 136/111
[2017-01-14] MEDS: INSULIN DETEMIR 100 UNITS/ML SQ SCH (20:34)
[2017-01-14] MEDS: CARVEDILOL 6.25 MG TABLET PO SCH (20:42)
[2017-01-14 22:47] LABS: GLUCOSE COMMENT 1 Received Meds; GLUCOSE,POINT OF CARE 287 MG/DL (70-110)
[2017-01-14 23:08] VITALS: BP 150/87
[2017-01-15] MEDS: NITROGLYCERIN 2% (1 GM=INCH) PACKET TP SCH ×3 (00:42→12:01)
[2017-01-15] MEDS: MORPHINE SULFATE 2 MG/ML SYRINGE IVP PRN ×2 (00:49→08:54)
[2017-01-15 04:48] VITALS: BP 135/87
[2017-01-15 08:09] VITALS: BP 142/71
[2017-01-15] MEDS: BUMETANIDE 0.25 MG/ML 10 ML VIAL IVP SCH ×2 (08:36→15:47)
[2017-01-15] MEDS: HEPARIN SODIUM,PORCINE 5,000 UNITS/ML VIAL SQ SCH (08:37)
[2017-01-15] MEDS: CARVEDILOL 6.25 MG TABLET PO SCH (08:40)
[2017-01-15] MEDS: ASPIRIN 81 MG CHEWABLE TABLET PO SCH (08:40)
[2017-01-15] MEDS: ISOSORB DINIT/HYDRALAZINE HCL 20-37.5 MG TABLET PO SCH (08:47)
[2017-01-15] MEDS: PANTOPRAZOLE SODIUM 40 MG DR TABLET PO SCH (08:48)
[2017-01-15] MEDS: FINASTERIDE 5 MG TABLET PO SCH (08:48)
[2017-01-15] MEDS: MULTIVITAMINS WITH MINERALS, THERAPEUTIC TABLET PO SCH (08:48)
[2017-01-15 12:04] VITALS: BP 142/78
[2017-01-15] MEDS ORDERED: INSU100V12 SQ (12:28)
[2017-01-15] MEDS ORDERED: MULT-1203 PO (12:29)
[2017-01-15] MEDS ORDERED: NTP TD (12:30)
[2017-01-15] MEDS ORDERED: ACET-784 PO (13:09)
[2017-01-15] MEDS ORDERED: AUD NEB (13:11)
[2017-01-15] MEDS ORDERED: CLON.1 PO (13:12)
[2017-01-15] MEDS ORDERED: BISA10S PR (13:12)
[2017-01-15] MEDS ORDERED: INSNOV SQ (13:14)
[2017-01-15] MEDS ORDERED: IPRNEB IH (13:15)
[2017-01-15] MEDS ORDERED: MOM30 PO (13:15)
[2017-01-15] MEDS ORDERED: ONDA4 PO (13:16)
[2017-01-15] MEDS ORDERED: ZOLP5 PO (13:16)
[2017-01-15] MEDS: OxyCODONE HCL/ACETAMINOPHEN 5-325 MG TABLET PO PRN (13:46)
[2017-01-15 15:35] VITALS: BP 128/61
[2017-01-15 17:33] LABS: GLUCOSE,POINT OF CARE 312 MG/DL (70-110)
[2017-01-15 17:33] LABS: GLUCOSE COMMENT 1 Received Meds; GLUCOSE,POINT OF CARE 299 MG/DL (70-110)
[2017-01-15 19:36] LABS: GLUCOSE,POINT OF CARE 71 MG/DL (70-110)
[2017-01-15 19:52] LABS: GLUCOSE COMMENT 1 Juice/Food/D50 Given; GLUCOSE,POINT OF CARE 48 MG/DL (70-110)
[2017-01-15 19:52] LABS: GLUCOSE,POINT OF CARE 96 MG/DL (70-110)
[2017-01-16 07:02] LABS: GLUCOSE,POINT OF CARE 81 MG/DL (70-110)
== END 2017-01-15 16:58 | disposition hospice, home (50) | DRG 194 ==
LOC: EMS 17:18 → 5S 20:53
PROVIDERS: ADMIT Internal Medicine; ATTEND Internal Medicine
DX: I13.0 Hypertensive heart and chronic kidney disease with heart failure and stage 1 through stage 4 chronic kidney disease, or unspecified chronic kidney disease (principal); J90 Pleural effusion, not elsewhere classified; E11.22 Type 2 diabetes mellitus with diabetic chronic kidney disease; N17.9 Acute kidney failure, unspecified; N18.3 Chronic kidney disease, stage 3 (moderate); E11.65 Type 2 diabetes mellitus with hyperglycemia; G20 Parkinson's disease; D64.9 Anemia, unspecified; S31.20XA Unspecified open wound of penis, initial encounter; R13.10 Dysphagia, unspecified; I50.43 Acute on chronic combined systolic (congestive) and diastolic (congestive) heart failure; I48.91 Unspecified atrial fibrillation; E78.5 Hyperlipidemia, unspecified; K59.00 Constipation, unspecified; I25.10 Atherosclerotic heart disease of native coronary artery without angina pectoris; N40.0 Benign prostatic hyperplasia without lower urinary tract symptoms; R09.02 Hypoxemia; Z91.14 Patient's other noncompliance with medication regimen; Z95.5 Presence of coronary angioplasty implant and graft; Z79.82 Long term (current) use of aspirin; Z79.4 Long term (current) use of insulin; Z79.899 Other long term (current) drug therapy; Z88.0 Allergy status to penicillin; Z88.8 Allergy status to other drugs, medicaments and biological substances; Y93.89 Activity, other specified; Y92.89 Other specified places as the place of occurrence of the external cause; Y99.8 Other external cause status
CPT/HCPCS: 51702; 82306; 82962; 83735; 84153; 84443; 93005; 93306; 96372; 96374; 96375; 99291; J1644; J1815; J1940; J2270; J2405; J3490; J7050